=== PATIENT | male | born 1970 | race Caucasian/White ===

== ENCOUNTER → 2019-05-14 | Outpatient (CLI) | payer OTHER, SELFPAY | PROVIDERS: Family Provider Internal Medicine; Visit Provider Internal Medicine | DX: M54.5 Low back pain (principal) | CPT/HCPCS: 72100 ==

== ENCOUNTER 2019-07-25 05:00 | Emergency (ER) | payer OTHER, SELFPAY ==
[2019-07-25 05:08] VITALS: BP 158/95; PULSE 120; RESP 20; TEMP 37.9; O2SAT 94; BMI 42.3
[2019-07-25 05:17] VITALS: BP 158/95; PULSE 117; RESP 16; O2SAT 94
--- NOTE | 2019-07-25 05:18 | XRR_ITS ---
PROCEDURE INFORMATION: Exam: XR Chest, 1 View Exam date and time: 07/25/2019 5:51 AM Age: 49 years old Clinical indication: Cough and fever and shortness of breath; Additional info: Cough, congestion, fever, SOB x 4 days TECHNIQUE: Imaging protocol: XR of the chest Views: Frontal portable upright view of the chest. COMPARISON: CR Chest 1 [place] [id number] 03/08/2019 5:28 AM FINDINGS: Tubes, catheters and devices: EKG leads are present overlying the chest. Lungs: The lungs are clear bilaterally. The pulmonary vasculature is normal. Pleural space: No pleural effusion. No pneumothorax. Heart/Mediastinum: The heart is normal in size and contour. Mediastinum: Stable. Bones/joints: Stable. XR/XR chest 1V portable [id number] IMPRESSION: No acute cardiopulmonary abnormality identified.
[2019-07-25 05:37] LABS: Basophils % 0.2 %; Eosinophils % 0.4 %; Hemoglobin 14.4 g/dL (11.7-16.6); Lymphocytes # 0.5 10^3/uL (0.8-4.8); Lymphocytes % 9.6 %; Mean Corpuscular HGB Conc 32.7 g/dL (30.0-36.0); Mean Corpuscular Hemoglobin 28.1 pg (28.0-34.0); Mean Corpuscular Volume 85.9 fL (80-94); Mean Platelet Volume 9.8 fL (7.4-10.4); Monocytes # 0.4 10^3/uL (0.2-0.9); Monocytes % 6.8 %; Neutrophils # 4.4 10^3/uL (1.8-7.7); Neutrophils % 82.8 %; Nucleated Red Blood Cells % 0 %; Platelet Count 139 10^3/cmm (130-400); Red Blood Count 5.12 10^6/uL (4.1-5.3); Red Cell Distribution Width 14.5 % (12.1-15.1); White Blood Count 5.3 10^3/uL (4.0-10.0)
[2019-07-25] MEDS: acetaminophen 500 mg Tablet 1000 MG PO (05:39)
[2019-07-25] MEDS: sodium chloride 0.9% 1,000 ML 999 ML IV (05:39)
[2019-07-25] MEDS: ketorolac 30 mg/mL INJ 15 MG IVP (05:40)
--- NOTE | 2019-07-25 05:44 | W.ED.SOB ---
HPI - SOB/Dyspnea General: Chief Complaint: Shortness of Breath/Dyspnea Stated Complaint: back pain Time Seen by Provider: 07/25/19 05:09 Source: patient Mode of arrival: ambulatory History of Present Illness: HPI Narrative: Chance is a 49-year-old male who is had cough along with fever and body aches over the last 2 days. Patient states his had similar symptoms last week. Patient is currently febrile on tachycardic at this time. He denies any shortness of breath. He states he has body aches all over that are sharp in nature and rates it a 6 out of 10. He denies any worsening or improving factors. He has had no vomiting or abdominal pain MD elicited complaint: shortness of breath and cough Associated symptoms: Reports fever(s); Deny abdominal pain, chest pain, nausea or vomiting Review of Systems Const: Reports: fever and chills; Denies: body aches or change in appetite Eyes: Denies: blurry vision or eye discomfort ENMT: Denies: throat pain or dental pain Card: Denies: chest pain Resp: Reports: productive cough; Denies: shortness of breath GI: Denies: abdominal pain, nausea, vomiting or diarrhea : Denies: painful urination Musc: Reports: joint pain; Denies: neck pain or back pain Skin/Breast: Denies: rash Neuro: Denies: headache Psych: Denies: depression Amado/Lymph: Denies: easy bruising All/Imm: Denies: hives PFSH ED PFSH: Social History Smoking and tobacco status: former smoker Physical Exam Const: COMMON NORMALS: no apparent distress, oriented x3 and healthy appearing HENMT: COMMON NORMALS: normocephalic and head/scalp atraumatic HEAD & SCALP: normocephalic and atraumatic Eye: COMMON NORMALS: PERRL and EOMs intact bilaterally PUPIL: Yes PERRL Neck/C-Spine: COMMON NORMALS: full ROM and supple Chest: COMMONS NORMALS: inspection of chest normal and palpation of chest normal Resp: COMMON NORMALS: normal respiratory effort, no retractions, no use of accessory muscles and clear to auscultation bilaterally AUSCULTATION: clear to auscultation bilaterally Cardio: COMMON NORMALS: regular rhythm and no murmurs RATE: tachycardic RHYTHM: regular rhythm GI: COMMON NORMALS: normal to inspection, nondistended, normoactive bowel sounds, soft to palpation, non-tender and no masses PALPATION: Yes soft Extremity: COMMON NORMALS: normal to inspection and full ROM Neuro: COMMON NORMALS: oriented x3, moves all extremities and no focal motor deficits Psych: COMMON NORMALS: mental status grossly normal, thought process normal and cooperative THOUGHT PROCESS: normal thought process Skin: COMMON NORMALS: no rashes or lesions noted and no wounds GENERAL SKIN EXAM: no rashes or lesions noted Course Vital Signs: Vital signs: Vital Signs Temperature 98.4 F 07/25/19 06:44 Pulse Rate 115 H 07/25/19 06:44 Respiratory Rate 18 07/25/19 06:44 Blood Pressure 153/85 07/25/19 06:44 Pulse Oximetry 94 07/25/19 06:44 MDM - SOB/Dyspnea MDM Narrative: Medical decision making narrative: Patient presents here with fever body aches and has influenza. Patient's flu a was positive. He has no signs of pneumonia or sepsis. Patient feels improved here. We will place him on Tamiflu and he is to follow-up with primary care doctor in 3 to 5 days and return if worsening. Lab Data: Labs: Lab Results 07/25/19 07/25/19 07/25/19 Range/Units 05:24 05:30 05:30 WBC 5.3 (4.0-10.0) 10^3/ uL RBC 5.12 (4.1-5.3) 10^6/u L Hgb 14.4 (11.7-16.6) g/dL Hct 44.0 (42.0-52.0) % MCV 85.9 (80-94) fL MCH 28.1 (28.0-34.0) pg MCHC 32.7 (30.0-36.0) g/dL RDW 14.5 (12.1-15.1) % Plt Count 139 (130-400) 10^3/c mm MPV 9.8 (7.4-10.4) fL Neut % (Auto) 82.8 % Lymph % (Auto) 9.6 % [place] % (Auto) 6.8 % Eos % (Auto) 0.4 % Baso % (Auto) 0.2 % Neut # (Auto) 4.4 (1.8-7.7) 10^3/u L Lymph # (Auto) 0.5 L (0.8-4.8) 10^3/u L [place] # (Auto) 0.4 (0.2-0.9) 10^3/u L Eos # (Auto) 0.0 (0.0-0.8) 10^3/u L Baso # (Auto) 0.0 (0.0-0.1) 10^3/u L Nucleated RBC % (a uto) 0 % Nucleated RBCs # 0.0 /100WBC Sodium 136 (136-145) mmol/L Potassium 3.8 (3.5-5.1) mmol/L Chloride 102 (98-107) mmol/L Carbon Dioxide 21 L (22-29) mmol/L Anion Gap 16.8 (5-19) BUN 17 (6-20) mg/dL Creatinine 0.8 (0.7-1.2) mg/dL GFR Calculation 103.6 (90-130) mL/min Glucose 239 H (65-115) mg/dL Calculated Osmolal ity 286 (285-295) mOsm/k g Calcium 9.4 (8.5-10.5) mg/dL Total Bilirubin 0.3 (0.15-1.2) mg/dL AST 18 (0-40) U/L ALT 21 (0-41) U/L Alkaline Phosphata se 47 (40-130) IU/L Total Protein 6.3 L (6.6-8.7) g/dL Albumin 3.9 (3.5-5.2) g/dL Globulin 2.4 (1.3-4.6) g/dL Influenza Type A A g Positive H (Negative) POC Influenza B Ag Negative (Negative) Imaging Data^: CXR: Attestation: I personally reviewed and interpreted this imaging study as follows: My impression: no acute abnormality Discharge Plan Discharge Patient Disposition: Home, Self-Care Clinical Impression: Influenza A Condition: Stable Prescriptions: New Tamiflu 75 mg capsule 75 mg PO BID 5 Days Qty: 10 RF: 0 No Action isosorbide mononitrate 30 mg tablet extended release 24 hr 30 mg PO QAM Qty: 30 RF: 0 isosorbide mononitrate 30 mg tablet extended release 24 hr 30 mg PO DAILY Qty: 30 RF: 1 Discharge Orders: Discharge Order (Routine); Ordered 07/25/19 Ordered By: Ana Maria Resendiz Referrals: Lanie Washington MD [Primary Care Provider] - Discharge Diet: Advance as tolerated Discharge Activity: Resume usual activity Patient Instructions: Influenza (ED) Stand Alone Forms: Work/School Release Discharge Date/Time: 07/25/19 06:48 Coding Level of Care Code ED Sandblast Carver for Chg Fwd Exam Comprehensive
[2019-07-25 05:49] LABS: Alanine Aminotransferase 21 U/L (0-41); Albumin Level 3.9 g/dL (3.5-5.2); Alkaline Phosphatase 47 IU/L (40-130); Anion Gap 16.8 (5-19); Aspartate Amino Transferase 18 U/L (0-40); Blood Urea Nitrogen 17 mg/dL (6-20); Calcium 9.4 mg/dL (8.5-10.5); Carbon Dioxide 21 mmol/L (22-29); Chloride 102 mmol/L (98-107); Globulin 2.4 g/dL (1.3-4.6); Glomerular Filtration Rate 103.6 mL/min (90-130); Glucose 239 mg/dL (65-115); Osmolality Calculated 286 mOsm/kg (285-295); Potassium 3.8 mmol/L (3.5-5.1); Sodium 136 mmol/L (136-145); Total Bilirubin 0.3 mg/dL (0.15-1.2); Total Protein 6.3 g/dL (6.6-8.7)
[2019-07-25 05:56] LABS: Influenza A by IFA Positive (Negative); Influenza B by IFA Negative (Negative)
[2019-07-25 06:05] VITALS: BP 155/91; PULSE 106; RESP 18; O2SAT 94
[2019-07-25 06:44] VITALS: BP 153/85; PULSE 115; RESP 18; TEMP 36.9; O2SAT 94
== END 2019-07-25 06:48 | disposition home or self-care (01) ==
PROVIDERS: Emergency Provider Emergency Medicine; Family Provider Internal Medicine; PCP Internal Medicine
DX: J09.X2 Influenza due to identified novel influenza A virus with other respiratory manifestations (principal); Z87.891 Personal history of nicotine dependence
CPT/HCPCS: 12345; 71045; 80053; 85025; 87804; 96361; 96374; 96375; 99283; 99284; J1885; J7030

== ENCOUNTER 2020-07-10 19:48 | Observation (INO) | payer OTHER, SELFPAY ==
--- NOTE | 2020-07-10 19:51 | ECG_ITS ---
[facility] Test Date: 2020-07-10 Pat Name: Chance Garnica Department: Room: Gender: Male Admissions Manager: KAIN : 1970 Requested By: Ana Maria Resendiz Order Number: [id number] Meeta MD: Kelly Elias M.D. Measurements Intervals [place] Rate: 92 P: 16 [place]: 165 QRS: -27 QRSD: 101 T: 40 QT: 368 QTc: 456 Interpretive Statements SINUS RHYTHM BORDERLINE LEFT AXIS DEVIATION [QRS AXIS < -20] MINIMAL VOLTAGE CRITERIA FOR LVH, CONSIDER NORMAL VARIANT [MEETS CRITERIA IN ONE OF: R(aVL), S(V1), R(V5), R(V5/V6)+S(V1)] Compared to ECG 11/02/2018 02:26:19 Intraventricular conduction delay no longer present Electronically Signed On 07-12-2020 11:22:53 STOREKEEPER HELPER by Kelly Elias M.D. [email or web address] hospital.[email or web address]/store/OV/[id number]
--- NOTE | 2020-07-10 19:51 | XR_ITS ---
WS: [id number] Exam: XR chest 1V portable [id number] Date/Time of Exam: 07/10/2020 8:30 PM Reason For Exam: cp Comparison 07/25/2019. Findings: The lungs are clear and fully expanded. Costophrenic angles are sharp. No infiltrates. Bronchovascula r relief appears normal. Cardiac silhouette is unremarkable. Bony elements are intact. XR/XR chest 1V portable [id number] IMPRESSION: Unremarkable chest radiograph.
[2020-07-10 20:01] VITALS: BP 148/91; PULSE 90; RESP 14; TEMP 36.8; O2SAT 97; BMI 38.5
[2020-07-10 20:15] VITALS: BP 145/88; PULSE 87; O2SAT 97
--- NOTE | 2020-07-10 20:24 | ED_ITS ---
HPI - Chest Pain General: Chief Complaint: Chest Pain Stated Complaint: cp Time Seen by Provider: 07/10/20 20:15 Source: patient Mode of arrival: ambulatory Limitations: no limitations History of Present Illness: HPI narrative: 50-year-old male states of intermittent chest pain over the last few hours to his left chest. States it radiates down his left arm and to his left jaw. States pain is currently a 4 out of 10. Denies any worsening improving factors. Denies any shortness of breath. MD complaint: chest pain Associated symptoms: Deny abdominal pain, dyspnea, fever(s), nausea or vomiting Review of Systems Const: Denies: fever(s), chills, body aches or change in appetite Eyes: Denies: blurry vision or eye discomfort ENMT: Denies: throat pain or dental pain Card: Reports: chest pain Resp: Denies: dyspnea GI: Denies: abdominal pain, nausea, vomiting or diarrhea : Denies: dysuria Musc: Denies: neck pain or back pain Skin/Breast: Denies: rash Neuro: Denies: headache(s) Psych: Denies: depression Amado/Lymph: Denies: easy bruising All/Imm: Denies: urticaria PFSH ED PFSH: Medical History Dyslipidemia Hypertension Hypokalemia Testicular cancer Type 2 diabetes mellitus Surgical History H/O knee surgery H/O shoulder surgery History of appendectomy History of orchiectomy Hx of tonsillectomy Family History Father Cancer Testicular cancer Other Diabetes Social History Smoking and tobacco status: former smoker Alcohol intake: never Substance/Drug Use: never Household members: spouse Housing: House Physical Exam Const: COMMON NORMALS: no acute distress, patient oriented x3 and healthy appearing HENMT: COMMON NORMALS: normocephalic and atraumatic HEAD & SCALP: normoceph alic and atraumatic Eye: COMMON NORMALS: Equal, round and reactive pupils present and EOMs intact bilaterally PUPIL: Yes Equal, round and reactive pupils present Neck/C-Spine: COMMON NORMALS: full ROM and supple Chest: COMMONS NORMALS: normal inspection of the chest and normal palpation of entire chest wall Resp: COMMON NORMALS: normal respiratory effort, No retractions, No use of accessory muscles and clear to auscultation bilaterally AUSCULTATION: clear to auscultation bilaterally Cardio: COMMON NORMALS: regular rate, regular rhythm and No murmurs present (Cardio) RATE: regular rate RHYTHM: regular rhythm GI: COMMON NORMALS: Normal to inspection, nondistended, normoactive bowel sounds present, Soft to palpation, non-tender and no masses PALPATION: Yes Soft to palpation Extremity: COMMON NORMALS: normal to inspection and full ROM Neuro: COMMON NORMALS: patient oriented x3, moves all extremities and no focal motor deficits Psych: COMMON NORMALS: mental status grossly normal, Normal thought process present and cooperative THOUGHT PROCESS: Normal thought process present Skin: COMMON NORMALS: no rashes or lesions noted and no wounds GENERAL SKIN EXAM: no rashes or lesions noted Course Vital Signs: Vital signs: Vital Signs Temperature 98.3 F 07/10/20 20:01 Pulse Rate 90 07/10/20 20:01 Respiratory Rate 14 07/10/20 20:01 Blood Pressure 148/91 07/10/20 20:01 Pulse Oximetry 97 07/10/20 20:01 MDM - Chest Pain MDM Narrative: Medical decision making narrative: Patient presents with chest pain and has a initial troponin is negative normal EKG. He is continue to have some intermittent pain here and I spoke to the hospitalist and will admit for observation. He has no signs of pulmonary embolism. Lab Data: Labs: Lab Results 07/10/20 07/10/20 07/10/20 Range/Units 20:39 20:39 20:39 WBC 6.6 (4.0-10.0) 10^3/ uL RBC 5.13 (4.1-5.3) 10^6/u L Hgb 15.2 (11.7-16.6) g/dL Hct 45.2 (42.0-52.0) % MCV 88.1 (80-94) fL MCH 29.6 (28.0-34.0) pg MCHC 33.6 (30.0-36.0) g/dL RDW 12.7 (12.1-15.1) % Plt Count 233 (130-400) 10^3/c mm MPV 9.5 (7.4-10.4) fL Neut % (Auto) 43.8 % Lymph % (Auto) 46.5 % [place] % (Auto) 7.1 % Eos % (Auto) 1.8 % Baso % (Auto) 0.6 % Neut # (Auto) 2.91 (1.8-7.7) 10^3/u L Lymph # (Auto) 3.1 (0.8-4.8) 10^3/u L [place] # (Auto) 0.5 (0.2-0.9) 10^3/u L Eos # (Auto) 0.1 (0.0-0.8) 10^3/u L Baso # (Auto) 0.0 (0.0-0.1) 10^3/u L Nucleated RBC % (a uto) 0 % Nucleated RBCs # 0.0 /100WBC PT 13.00 (12.1-14.9) SECO NDS INR 0.95 (0.8-1.2) Sodium 135 L (136-145) mmol/L Potassium 3.4 L (3.5-5.1) mmol/L Chloride 97 L (98-107) mmol/L Carbon Dioxide 22 (22-29) mmol/L Anion Gap 19.4 H (5-19) BUN 13 (6-20) mg/dL Creatinine 0.6 L (0.7-1.2) mg/dL GFR Calculation 143.8 H (90-130) mL/min Glucose 254 H (65-115) mg/dL Calculated Osmolal ity 289 (285-295) mOsm/k g Calcium 9.3 (8.5-10.5) mg/dL Total Bilirubin 0.3 (0.15-1.2) mg/dL AST 14 (0-40) U/L ALT 24 (0-41) U/L Alkaline Phosphata se 55 (40-130) IU/L Troponin T Baselin e (0-15) ng/L Total Protein 6.4 L (6.6-8.7) g/dL Albumin 4.6 (3.5-5.2) g/dL Globulin 1.8 (1.3-4.6) g/dL 07/10/20 Range/Units 20:39 WBC (4.0-10.0) 10^3/ uL RBC (4.1-5.3) 10^6/u L Hgb (11.7-16.6) g/dL Hct (42.0-52.0) % MCV (80-94) fL MCH (28.0-34.0) pg MCHC (30.0-36.0) g/dL RDW (12.1-15.1) % Plt Count (130-400) 10^3/c mm MPV (7.4-10.4) fL Neut % (Auto) % Lymph % (Auto) % [place] % (Auto) % Eos % (Auto) % Baso % (Auto) % Neut # (Auto) (1.8-7.7) 10^3/u L Lymph # (Auto) (0.8-4.8) 10^3/u L [place] # (Auto) (0.2-0.9) 10^3/u L Eos # (Auto) (0.0-0.8) 10^3/u L Baso # (Auto) (0.0-0.1) 10^3/u L Nucleated RBC % (a uto) % Nucleated RBCs # /100WBC PT (12.1-14.9) SECO NDS INR (0.8-1.2) Sodium (136-145) mmol/L Potassium (3.5-5.1) mmol/L Chloride (98-107) mmol/L Carbon Dioxide (22-29) mmol/L Anion Gap (5-19) BUN (6-20) mg/dL Creatinine (0.7-1.2) mg/dL GFR Calculation (90-130) mL/min Glucose (65-115) mg/dL Calculated Osmolal ity (285-295) mOsm/k g Calcium (8.5-10.5) mg/dL Total Bilirubin (0.15-1.2) mg/dL AST (0-40) U/L ALT (0-41) U/L Alkaline Phosphata se (40-130) IU/L Troponin T Baselin e 7 (0-15) ng/L Total Protein (6.6-8.7) g/dL Albumin (3.5-5.2) g/dL Globulin (1.3-4.6) g/dL Imaging Data^: CXR: Attestation: I personally reviewed and interpreted this imaging study as follows: My impression: no acute abnormality EKG Data^: EKG 1: Attestation: I personally reviewed and interpreted this EKG as follows: EKG interpretation date: 07/10/20 EKG interpretation time: 19:57 Interpretation: nsr hr [address] or t wave abnormalities qrs 101 qtc 418 Discharge Plan Discharge Patient Disposition: Admitted As Inpatient Admit Provider: Johnnie Brooks Clinical Impression: Chest pain Qualifiers: Chest pain type: unspecified Qualified Code(s): R07.9 - Chest pain, unspecified Condition: Stable Coding Level of Care Code ED Functional Consultant for g Fwd Exam Comprehensive
[2020-07-10 20:46] LABS: Basophils % 0.6 %; Eosinophils # 0.1 10^3/uL (0.0-0.8); Eosinophils % 1.8 %; Hematocrit 45.2 % (42.0-52.0); Hemoglobin 15.2 g/dL (11.7-16.6); Lymphocytes # 3.1 10^3/uL (0.8-4.8); Lymphocytes % 46.5 %; Mean Corpuscular HGB Conc 33.6 g/dL (30.0-36.0); Mean Corpuscular Hemoglobin 29.6 pg (28.0-34.0); Mean Corpuscular Volume 88.1 fL (80-94); Mean Platelet Volume 9.5 fL (7.4-10.4); Monocytes # 0.5 10^3/uL (0.2-0.9); Monocytes % 7.1 %; Neutrophils # 2.91 10^3/uL (1.8-7.7); Neutrophils % 43.8 %; Nucleated Red Blood Cells % 0 %; Platelet Count 233 10^3/cmm (130-400); Red Blood Count 5.13 10^6/uL (4.1-5.3); Red Cell Distribution Width 12.7 % (12.1-15.1); White Blood Count 6.6 10^3/uL (4.0-10.0)
[2020-07-10 21:00] VITALS: PULSE 78; O2SAT 97
[2020-07-10 21:03] LABS: INR 0.95 (0.8-1.2)
[2020-07-10 21:10] LABS: Troponin(5th) Baseline 7 ng/L (0-15)
[2020-07-10 21:11] LABS: Alanine Aminotransferase 24 U/L (0-41); Albumin Level 4.6 g/dL (3.5-5.2); Alkaline Phosphatase 55 IU/L (40-130); Blood Urea Nitrogen 13 mg/dL (6-20); Calcium 9.3 mg/dL (8.5-10.5); Carbon Dioxide 22 mmol/L (22-29); Chloride 97 mmol/L (98-107); Globulin 1.8 g/dL (1.3-4.6); Glomerular Filtration Rate 143.8 mL/min (90-130); Glucose 254 mg/dL (65-115); Total Bilirubin 0.3 mg/dL (0.15-1.2); Total Protein 6.4 g/dL (6.6-8.7)
[2020-07-10 21:26] LABS: Anion Gap 19.4 (5-19); Aspartate Amino Transferase 14 U/L (0-40); Osmolality Calculated 289 mOsm/kg (285-295); Potassium 3.4 mmol/L (3.5-5.1); Sodium 135 mmol/L (136-145)
--- NOTE | 2020-07-10 21:51 | ECG_ITS ---
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 Measurements Intervals [place] Rate: 77 P: 36 SD: 178 QRS: 48 QRSD: 104 T: -3 QT: 390 QTc: 444 Interpretive Statements SINUS RHYTHM Compared to ECG 07/10/2020 19:57:09 No significant changes Electronically Signed On 07-12-2020 11:35:22 MANAGER BENEFIT by Kelly Elias M.D. [id number]
--- NOTE | 2020-07-10 21:56 | PC.NURSE ---
EKG done at 2152 and shown to ER doctor
[2020-07-10 22:00] VITALS: PULSE 78; RESP 14; O2SAT 95
--- NOTE | 2020-07-10 22:33 | PM.HP ---
Providers/Chief Complaint Admitting Physician: oJhnnie Brooks MD Primary Care Provider: Lanie Washington MD Chief Complaint: cp History of Present Illness Chance Garnica is a 50 year old male with history of nonobstructive coronary disease status post cardiac catheterization 2018, his antianginal medications were titrated up, with the 20% narrowing, type 2 diabetes, obesity, hypertension presented today with chief complaint of chest pain. Patient is stating that he was working on his truck when he started experiencing chest discomfort today which she is describing as pressure-like sensation which was radiating towards his left shoulder and jaw it lasted for about 2 to 5 min did not cause any diaphoresis, or vomiting but he felt nauseous and short of breath. 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 Chews tobacco every day. He has been experiencing chest pain intermittently today without any aggravating or relieving factors. No recent sinus infection, COVID-19 symptoms, diarrhea, headache, orthopnea or PND. Diagnostics in the ER revealed normal CBC, BMP other than hypokalemia, EKG does not reveal any ischemic or infarctive changes, chest x-ray unremarkable D-dimer unremarkable, troponin not significantly high, patient was complaining of slight chest discomfort radiating towards left shoulder at the time of my evaluation otherwise normal hemodynamics, in the ER he was given loading dose of aspirin along nitroglycerin and 1 mg of morphine. Review of Systems Const: Denies: fever(s) Eyes: Denies: change in vision ENMT: Denies: throat pain Card: Reports: chest pain; Denies: pre-syncope, dyspnea on exertion or orthopnea Resp: Reports: dyspnea GI: Denies: abdominal pain : Denies: flank pain Musc: Denies: neck pain Skin/Breast: Denies: rash Neuro: Denies: headache(s) Psych: Denies: anxiety Endo: Denies: polyuria Amado/Lymph: Denies: easy bruising All/Imm: Denies: urticaria Medications/Allergies Home Medications Medication Instructions Recorded Confirmed Last Taken Type atorvastatin 40 mg PO DAILY@189907/10/20 07/10/20 07/09/20 History escitalopram oxalate [Lexapro] 20 mg PO DAILY@189907/10/20 07/10/20 07/09/20 History isosorbide mononitrate 30 mg PO DAILY@1899 07/10/20 07/10/20 07/09/20 History lisinopril-hydrochlorothiazide 1 tab PO DAILY@0500 07/10/20 07/10/20 07/10/20 History metformin 1,000 mg PO BID@0500,1900 07/10/20 07/10/20 07/10/20 History trazodone 100 mg PO DAILY@2100 07/10/20 07/10/20 07/09/20 History Allergies Allergy/AdvReac Type Severity Reaction Status Date / Time No Known Allergies Allergy Unverified 06/11/19 16:37 PFSH Acute PFSH: Medical History Dyslipidemia Hypertension Hypokalemia Testicular cancer Type 2 diabetes mellitus Surgical History H/O knee surgery H/O shoulder surgery History of appendectomy History of orchiectomy Hx of tonsillectomy Family History Father Cancer Testicular cancer Other Diabetes Social History Smoking and tobacco status: former smoker Alcohol intake: never Substance/Drug Use: never Household members: spouse Housing: House Vitals/I&O/Wt Last Vital Signs Temp 98.3 F 07/10/20 20:01 Pulse 90 07/10/20 20:01 Resp 14 07/10/20 20:01 BP 148/91 07/10/20 20:01 Pulse Ox 97 07/10/20 20:01 Weight last 48 hrs Weight 136.078 kg Physical Exam Narrative: EXAM NARRATIVE: Middle-age male Obese, lying comfortably in his bed Questioning tobacco when entered the room S1, S2 no murmur or signs of heart failure Central obesity, nontender abdomen Bilateral breath sounds without adventitial rhonchi or crackles No neurological deficit EOMI, PERRLA GCS 15 Low symmetry no edema gangrene or ulcer Appropriate mood and affect Data : 07/10/20 20:39 07/10/20 20:39 A&P Assessment and plan (1) Angina at rest: Unstable angina Multiple risk factors for coronary disease such as hypertension, diabetes, chews tobacco, age, sex, Previous cardiac catheterization 2 years ago revealed 20% stenosis of LAD, troponins unremarkable, EKG without ischemic or infarctive changes, D-dimer unremarkable We will get echo and Lexiscan stress test in the morning, Would avoid adding beta-jake because of Lexiscan stress test, optimize antianginal medications after stress test N.p.o. Status: Acute Additional A&P Information Type 2 diabetes: We will check hemoglobin A1c level, we will keep him on sliding scale because he is n.p.o., start consistent carb diet after the stress test He only takes Metformin at home Chews tobacco: Not willing to quit at this point N.p.o. DVT prophylaxis Lovenox Full code Attestations Medical Necessity Statement*: Anticipating discharge in less than 48 h needs Lexiscan stress test rule coronary etiology for chest pain Time Spent in Patient Care: (>than 50% of time spent in counselling and/or direct pt care on unit). 50mins Coding Level of Care Code Acute Scientific Informatics Analyst for Kalia Sepulveda Diagnoses Angina at rest I20.8
[2020-07-10] MEDS: aspirin 81 mg Chew Tablet 324 MG PO (22:45)
[2020-07-10] MEDS: nitroglycerin 0.4 mg sublingual Tablet SUBLINGUAL (22:46)
[2020-07-10 22:57] LABS: Troponin 5 2HR 7.17 ng/L (0-15); Troponin 5 2HR Delta 0.17 ABS# (0-10)
[2020-07-10 23:00] VITALS: PULSE 79; RESP 16; O2SAT 97
[2020-07-10 23:01] LABS: D Dimer 0.17 ug/mIFEU (0-0.59)
[2020-07-10 23:23] VITALS: RESP 12; O2SAT 97
[2020-07-10] MEDS: morphine 4 mg/mL SDV 1 mL 1 MG IVP (23:23)
[2020-07-10 23:46] LABS: Magnesium 1.6 mg/dL (1.7-2.3)
[2020-07-11] VITALS (11 sets, daily range): BP systolic 99–137; BP diastolic 66–89; PULSE 68–97; RESP 13–18; TEMP 36.6–36.8; O2SAT 96–98
--- NOTE | 2020-07-11 00:36 | ECG_ITS ---
[facility] Test Date: 2020-07-11 Pat Name: Chance Garnica Department: Room: 112 Gender: Male Social Science Professor: : 1970 Requested By: Johnnie Brooks Order Number: [id number] Meeta MD: Kelly Elias M.D. Interpretive Statements NAME OF STUDY: LEXISCAN SESTAMIBI STRESS TEST INDICATION: Angina PROCEDURE: At the baseline, the blood pressure was 118/80 mm Hg with a heart rate of 71 bpm and oxygen saturation 96%. The electrocardiogram showed normal sinus rhythm, normal axis and poor anterior R wave progression. ??? The Lexiscan was infused over a period of 20 seconds. A total of 0.4 milligrams of Lexiscan was infused. The stress phase was continued for a total of 5 minutes. Heart rate at the end of the stress phase was 87 bpm, oxygen saturation of 94% with a blood pressure of 123/72 mm Hg. The EKG at the peak infusion revealed no significant ST-T wave chnages. ??? Sestamibi was injected 20 seconds after the Lexiscan infusion. ??? Blood pressure at the end of the recovery phase was 119/72 mm Hg with a heart rate of 78 beats per minutes and oxygen saturation of 97%. ??? CONCLUSION: 1. No significant EKG changes with the] LexiScan infusion. 2. No LexiScan induced chest pain or cardiac arrhythmia. 3. Normal blood pressure and heart rate response. 4. Sestamibi/sestamibi perfusion scan pending; see separate report. Electronically Signed On 07-12-2020 11:04:03 CAB DRIVER by Kelly Elias M.D. [id number]
--- NOTE | 2020-07-11 00:36 | NMCV_ITS ---
NM mariah perf SPECT r/s* [id number] Chance Age: 50 Gender: M : 1970 Exam Date: 07/11/2020 07:10 Ordering Phys: Johnnie Brooks MD Technologist: ROHAN Richard Exam Location: [facility] Indications: CHEST PAIN STRESS TEST Please see separate stress test report in [facility] for full findings IMAGE PROTOCOL Rest/Stress 1 Lexiscan Day Radiopharmaceutical Dose (mCi) Administration Site Administered by Rest: Tc-99m 10.9 IV ROHAN Douglass Sestamibi Stress:Tc-99m 33.0 IV ROHAN Richard Sestamibi Rest: 11-Jul-2020 60 Discovery 630 Stress: 11-Jul-2020 30 Discovery 630 0.4mg Lexiscan. Supine position only as patient was unable to lay prone. SPECT RESULTS Technical Quality: Excellent Raw Data Analysis: Normal Image Corrections: No attenuation or motion correction applied Summed Stress Score: 3 Summed Rest Score: 11 Summed Difference Score: 0 PERFUSION FINDINGS Medium sized perfusion abnormality of moderate to severe severity of entire inferior and mid to apical inferolateral wall on rest images with improved trace uptake in stress images. FUNCTIONAL RESULTS (calculated via Gated SPECT) Stress Image LV EF (%): 46 Stress EDV (mL):170 TID: 1.08 Stress ESV (mL):92 FUNCTIONAL FINDINGS: The left ventricle is normal in size. Transient Ischemia Dilatation of 1.1. There is mildly reduced left ventricular global systolic function. The left ventricular ejection fraction is reduced with a value of 46%. There is possible mild hypokinesis of inferior wall. Increased end diastolic and end systolic volumes. IMPRESSIONS 1. Medium sized paradoxical perfusion abnormality of moderate to severe severity of entire inferior and mid to apical inferolateral and apical eric. 2. This very likely represents attenuation artifact. 3. The left ventricular ejection fraction is mildly reduced with a value of 46%. 4. There is possible mild hypokinesis of basal inferior wall. 5. No coronary ischemia based on study. Kelly Elias MD (Electronically Signed) Final Date: 12 July 2020 10:57 S
--- NOTE | 2020-07-11 00:36 | USCV_ITS ---
, Chance Age: 50 Gender: M : 1970 Exam Date: 07/11/2020 06:22 Ordering Phys: Johnnie Brooks MD Technologist: Lana Gallardo [place] [facility] [place]: ANGINA BP: 117 / 66 HR: 63 Rhythm: Sinus Technical Quality: Difficult MEASUREMENTS (Male / Female) Normal Values 2D ECHO LV Diastolic Diameter PLAX 4.0 cm 4.2 - 5.9 / 3.9 - 5.3 cm LV Systolic Diameter PLAX 3.5 cm LV Chamber Size 3.7 cm IVS Diastolic Thickness 1.4 cm 0.6 - 1.0 / 0.6 - 0.9 cm IVS Systolic Thickness 1.7 cm LVPW Diastolic Thickness 1.5 cm 0.6 - 1.0 / 0.6 - 0.9 cm LVPW Systolic Thickness 1.9 cm RV Chamber Size 2.5 cm LVOT Diameter 2.0 cm LV Ejection Fraction 2D Teich 29.7 % LV Ejection Fraction MOD 2C 55.7 % LV Ejection Fraction 2C AL 58.3 % LA Diameter 4.1 cm LA Width 3.0 cm LA Height 4.6 cm RA Width 3.8 cm RA Height 4.1 cm Aorta at Sinotubular Diameter 3.6 cm M-MODE LV Diastolic Diameter MM 4.9 cm 4.2 - 5.9 / 3.9 - 5.3 cm LV Systolic Diameter MM 3.2 cm LV Ejection Fraction MM Teich 64.0 % IVS Diastolic Thickness MM 1.1 cm 0.6 - 1.0 / 0.6 - 0.9 cm IVS Systolic Thickness MM 1.5 cm LVPW Diastolic Thickness MM 1.3 cm 0.6 - 1.0 / 0.6 - 0.9 cm LVPW Systolic Thickness MM 2.0 cm RV Diastolic Diameter MM 1.6 cm Aortic Annulus Diameter 4.0 cm LA Ao Ratio MM 1.0 MV E Point Septal Separation 0.8 cm DOPPLER AV Peak Velocity 101.0 cm/s LVOT Peak Velocity 54.0 cm/s AV Area Cont Eq vti 2.3 cm squared AV Area Cont Eq pk 1.8 cm squared MV Area PHT 4.4 cm squared Mitral E to A Ratio 1.2 MV E' Velocity 46.0 cm/s Mitral E to MV E' Ratio 9.3 Mitral E to LV E' Lateral Ratio 9.0 Mitral E to LV E' Septal Ratio 9.6 TR Peak Velocity 134.3 cm/s TR Peak Gradient 7.2 mmHg TR Mean Velocity 101.5 cm/s TR Mean Gradient 4.6 mmHg TR Velocity Time Integral 36.8 cm TV Peak E Velocity 64.0 cm/s PV Peak Velocity 48.0 cm/s RV Acceleration Time 0.1 s RV Ejection Time 0.3 s RV AcT/ET 0.3 FINDINGS Left Ventricle Normal left ventricular size. LV systolic function can not be determined accurately because of poor visualization, grossly normal. Regional wall motion abnormalties can not be assessed because of poor ultrasonic windows . Diastolic function is normal Right Ventricle The right ventricle is normal in size and function. Right Atrium The right atrium is normal in size. Left Atrium The left atrium is normal in size. Mitral Valve Structurally normal mitral valve without significant stenosis or prolapse. There is no mitral regurgitation. Aortic Valve Grossly normal. No significant aortic stenosis is seen. There is no aortic regurgitation. Tricuspid Valve Not well visualized. No significant stenosis or regurgitation. Insufficient TR jet to calculate RVSP Pulmonic Valve Not well visualized Pericardium Normal pericardium without effusion. Aorta Normal ascending aorta dimension. CONCLUSIONS This is a limited quality echocardiogram because of poor visualization of cardiac structures and limited echo windows Grossly LV systolic function is normal. Regional wall motion abnormalities can not be assessed because of limited visualization Diatsolic function is normal No gross valvular abnormalities Compared to prior echocardiogram from 11/03/2018, no significant changes are noted. Recommend echo with contrast to assess LV systolic function and regional wall motion accurately. Kevan Coburn MD (Electronically Signed) Final Date: 11 July 2020 15:30 S
[2020-07-11] MEDS: potassium chloride ER 20 mEq Tablet 40 MEQ PO (00:53)
[2020-07-11] MEDS: enoxaparin 40 mg/0.4 mL Syringe SUBCUT (00:54)
[2020-07-11 01:03] LABS: Estmated Average Glucose 266; Hemoglobin A1C 10.9 % (4.0-6.0)
--- NOTE | 2020-07-11 01:05 | PC.NURSE ---
Patient arrived to the floor from the ED after report was received via phone. Patient is alert and oriented, ambulatory, and on room air. Patient in SR-ST, rate of 102. Patient complains of chest pain 2. VSS.
[2020-07-11 02:34] LABS: Anion Gap 14.6 (5-19); Blood Urea Nitrogen 14 mg/dL (6-20); Calcium 9.8 mg/dL (8.5-10.5); Carbon Dioxide 27 mmol/L (22-29); Chloride 98 mmol/L (98-107); Glomerular Filtration Rate 120.4 mL/min (90-130); Glucose 327 mg/dL (65-115); Osmolality Calculated 295 mOsm/kg (285-295); Potassium 3.6 mmol/L (3.5-5.1); Sodium 136 mmol/L (136-145)
[2020-07-11] MEDS: lisinopril 20 mg Tablet PO (03:55)
[2020-07-11 06:36] LABS: Glucose Point of Care 213 mg/dL (70-110)
--- NOTE | 2020-07-11 07:48 | PC.NURSE ---
off unit to stress test
[2020-07-11] MEDS: regadenoson 0.4 Mg/5 ml Syringe IVP (08:03)
[2020-07-11] MEDS: hydroCHLOROthiazide 25 mg Tablet PO (09:47)
[2020-07-11] MEDS: aspirin 81 mg EC Tablet PO (09:47)
--- NOTE | 2020-07-11 10:08 | PC.CHAP ---
Pastoral Care Encounter/Spiritual Assessment Type of Contact [] Declined outbound sales executive visit [] Patient/Family/Request visit [] Outpatient visit [] Follow-up visit [] Physician referral [] Code/Alert [x] Routine visit [] Staff referral [] Actively dying [] Patient sleeping [] Family support [] [] Out of room [] Palliative care [] [] Receiving care in room [] Pre-surgical visit [] Trauma [] Long length of stay [] ICU visit [] Other: Relational/Emotional Strength [] Patient feels connected with others/family/visitors/staff [] Distress [] Loneliness/isolation [] Abandonment Spirituality of Patient [] Person of [place] [] Attends Restorationism of their [place] [] Believes in Prayer [] Reads Bible or Moravian materials [] There are Spiritual issues to be addressed Cover Machine Operator Interventions [x] Prayer [] Active listening [] Non-anxious presence [] Spiritual/emotional support [] Crisis/trauma care [] Spiritual counseling [] Bereavement support [] Provided bereavement packet [] Provided Bible/devotional materials [] Provided toy/stuffed animal, coloring book to patient or family member [] Provided Communion [] Anointing/[place] [] Salvation [x] Completed spiritual assessment [] Other: Impact on Illness or Injury [] Angry [] Fearful [] Anxious [] Often cries [] Exhaustion [] Unable to work [] Unable to attend mandaen [] Unable to walk/stand [] Unable to read [] Unable to drive [] Unable to eat/drink [] Unable to sleep [] Unable to be with family [] Patient intubated [] Other: Summary patient not to social... no conversation Time spent with patient 5 min
[2020-07-11 11:17] LABS: Glucose Point of Care 306 mg/dL (70-110)
[2020-07-11 17:02] LABS: Glucose Point of Care 270 mg/dL (70-110)
[2020-07-11] MEDS: atorvastatin 40 mg Tablet PO (18:13)
[2020-07-11] MEDS: isosorbide mononitrate ER 30 mg Tablet PO (18:13)
--- NOTE | 2020-07-11 20:02 | PM.PN ---
Subjective Subjective: Interval history: Continue to have intermittent chest pain however improved. Medications: Reviewed: Yes Vitals/I&O/Wt Last Vital Signs Temp 98.3 F 07/11/20 19:45 Pulse 89 07/11/20 19:45 Resp 16 07/11/20 19:45 BP 137/82 07/11/20 19:45 Pulse Ox 98 07/11/20 19:45 07/11/20 07/11/20 07/11/20 06:59 14:59 22:59 Intake Total 200 / 200 480 / 480 Balance 200 / 200 480 / 480 Weight last 48 hrs Weight 136.078 kg Data : 07/10/20 20:39 07/11/20 01:45 A&P Assessment and plan (1) Angina at rest: Stress test today - results pending Continue current meds If chest pain continues will consult cardiology Follow up on echo Status: Acute Additional A&P Information Type 2 diabetes: - Sliding scale insulin - Diabetic diet Chews tobacco: Not willing to quit at this point - Using it in room N.p.o. DVT prophylaxis Lovenox Full code Attestations Medical Necessity Statement*: Will require additional day in hospital for eval of ongoing chest pain Time Spent in Patient Care: Greater than 35 minutes Coding Level of Care Code Acute Medical Equipment Repair Technician for Chg Fwd Diagnoses Angina at rest I20.8
[2020-07-11 20:36] LABS: Glucose Point of Care 258 mg/dL (70-110)
[2020-07-11] MEDS: trazodone 100 mg Tablet PO (21:03)
--- NOTE | 2020-07-11 21:53 | PC.NURSE ---
Patient has no complaints at this time. Will monitor.
[2020-07-12] VITALS (7 sets, daily range): BP systolic 96–130; BP diastolic 46–72; PULSE 57–86; RESP 12–16; TEMP 36.5–36.7; O2SAT 95–98
[2020-07-12] MEDS: enoxaparin 40 mg/0.4 mL Syringe SUBCUT (02:20)
[2020-07-12] MEDS: lisinopril 20 mg Tablet PO (04:57)
[2020-07-12 06:39] LABS: Glucose Point of Care 196 mg/dL (70-110)
[2020-07-12] MEDS: hydroCHLOROthiazide 25 mg Tablet PO (08:07)
[2020-07-12] MEDS: aspirin 81 mg EC Tablet PO (08:07)
--- NOTE | 2020-07-12 08:44 | PC.NURSE ---
Spoke with Dr Corral with patient reports of headache instructions to start tylenol PO 650mg Q6H PRN for mild pain
[2020-07-12] MEDS: acetaminophen 325 mg Tablet 650 MG PO (09:27)
[2020-07-12 11:02] LABS: Glucose Point of Care 318 mg/dL (70-110)
--- NOTE | 2020-07-12 11:24 | PM.DCS ---
Discharge Providers Date of Admission: 07/10/20 22:00 Date of Discharge: July 12, 2020 Attending Provider at Admission: Johnnie Brooks MD Attending Provider at Discharge: Marielle Geller Primary Care Provider: Lanie Washington MD Diagnoses at Discharge Discharge Diagnosis (1) Angina at rest: Status: Resolved Reason for Visit Reason for Visit: cp Hospital Course Hospital Course 50 year old male with history of nonobstructive coronary disease status post cardiac catheterization 2018, his antianginal medications were titrated up, with the 20% narrowing, type 2 diabetes, obesity, hypertension presented today with chief complaint of chest pain. Patient is stating that he was working on his truck when he started experiencing chest discomfort today which she is describing as pressure-like sensation which was radiating towards his left shoulder and jaw it lasted for about 2 to 5 min did not cause any diaphoresis, or vomiting but he felt nauseous and short of breath. 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 Chews tobacco every day. He has been experiencing chest pain intermittently today without any aggravating or relieving factors. No recent sinus infection, COVID-19 symptoms, diarrhea, headache, orthopnea or PND. Diagnostics in the ER revealed normal CBC, BMP other than hypokalemia, EKG does not reveal any ischemic or infarctive changes, chest x-ray unremarkable D-dimer unremarkable, troponin not significantly high, patient was complaining of slight chest discomfort radiating towards left shoulder at the time of my evaluation otherwise normal hemodynamics, in the ER he was given loading dose of aspirin along nitroglycerin and 1 mg of morphine. Upon admission to the hospital patient was monitored on cardiac telemetry. Did not have any notable arrhythmias. Was taken for a nuclear stress test which showed medium sized paradoxical perfusion abnormality of moderate to severe severity of entire inferior and mid to apical inferolateral and apical eric suggestive of likely attenuation artifact. No coronary ischemia was noted. Echocardiogram was performed however poor visualization. Grossly did not appear to be different from prior echocardiograms. Patients chest pain had resolved. At this point he was stable and comfortable for discharging home. Advised to return to hospital if any recurrence of chest pain. Follow-up with Cardiology was arranged. Physical Exam Narrative: EXAM NARRATIVE: Middle-age male Obese, lying comfortably in his bed Questioning tobacco when entered the room S1, S2 no murmur or signs of heart failure Central obesity, nontender abdomen Bilateral breath sounds without adventitial rhonchi or crackles No neurological deficit EOMI, PERRLA GCS 15 Low symmetry no edema gangrene or ulcer Appropriate mood and affect Discharge Data Data Completed and Pending: Completed Studies During Hospitalization Category Date Time Status Sestamibi Stress Test Request Amarjit ne Exams 07/11/20 00:36 Completed XR chest 1V kimberly ble [id number] Stat Exams 07/10/20 19:51 Completed NM mariah perf SPECT r/s* [id number] Routin e Nuc Med 07/11/20 00:36 Completed CV echo complete* [id number] Routine Ultrasound 07/11/20 00:36 Completed Labs from last 24 hours 07/12/20 07/12/20 07/11/20 11:00 06:28 20:26 POC Glucose 318 H 196 H 258 H 07/11/20 16:58 POC Glucose 270 H Vitals: Last Vital Signs Temp 98.0 F 07/12/20 11:11 Pulse 86 07/12/20 11:11 Resp 12 07/12/20 11:11 BP 130/72 07/12/20 11:11 Pulse Ox 96 07/12/20 11:11 Discharge Plan Discharge Patient Disposition: Home Condition: Stable Prescriptions: New aspirin 81 mg Tablet,Delayed Release (Dr/Ec) 81 mg PO DAILY Qty: 30 RF: 0 Continued atorvastatin 40 mg tablet 40 mg PO DAILY@1900 RF: 0 trazodone 100 mg tablet 100 mg PO DAILY@2100 RF: 0 metformin 1,000 mg tablet 1,000 mg PO BID@0500,1900 RF: 0 lisinopril-hydrochlorothiazide 20-25 mg tablet 1 tab PO DAILY@0500 RF: 0 Lexapro 20 mg tablet 20 mg PO DAILY@1900 RF: 0 isosorbide mononitrate 30 mg tablet extended release 24 hr 30 mg PO DAILY@1900 RF: 0 Discharge Orders: Discharge Order (Routine); Ordered 07/12/20 Ordered By: Marielle Geller Referrals: Lanie Washington MD [Primary Care Provider] - 4-7 days ([facility] will be calling to schedule a hospital followup to be seen in 4 to 7 days. If you don't hear from them by Tuesday, please give them a call. thank you) Kevan Coburn M.D [Physician] - 1 week ([facility] Will be calling to schedule a cardiology followup to be seen in approx. 1 week. If you don't hear from them by Tuesday afternoon, please give them a call. Thank you ) Discharge Diet: Advance as tolerated Discharge Activity: Increase activity as tolerated Patient Instructions: Aspirin (By mouth), Chest Pain Stoplight Activity Restrictions/Additional Instructions: Please return to ER if any recurrance of chest pain, follow up with cardiology outpatient Discharge Attestations Time Spent in Discharge Care*: greater than 30 min Specific Discharge Activities: educating patient, discussing with pcp/other providers (Discussed with cardiology director of occupational health ), discussing with director of casework services/social workers/dc planners, documenting/other paperwork and evaluating patient/reviewing data Status at Discharge: Cognitive status at discharge: cognitively intact, Behavioral status at discharge: cooperative, Functional status at discharge: independent ambulation Overall status at discharge: patient is back to baseline Quality Metrics Clinical Quality Measures During this hospital stay, did patient experience: None Coding Level of Care Code Acute Manager Retail for Kalia Sepulveda Diagnoses Angina at rest I20.8
--- NOTE | 2020-07-12 13:27 | PC.NURSE ---
patient discharge home, patient provided with discharge instructions and educated about new medications patient ambulated out with spouse patient alert oriented and in stable condition upon departure. all belongings and discharge instructions in hand
== END 2020-07-12 12:55 | disposition home or self-care (01) ==
LOC: ER 22:08 → CSU 22:14
PROVIDERS: Admitting Provider Internal Medicine; Emergency Provider Emergency Medicine; PCP Internal Medicine; Visit Provider Hospitalist
DX: I20.8 Other forms of angina pectoris (principal); E11.9 Type 2 diabetes mellitus without complications; Z79.4 Long term (current) use of insulin; F17.220 Nicotine dependence, chewing tobacco, uncomplicated; E78.5 Hyperlipidemia, unspecified
CPT/HCPCS: 36415; 36416; 71045; 78452; 80048; 80053; 82962; 83036; 83735; 84484; 85025; 85378; 85610; 93005; 93017; 93306; 96361; 96372; 96374; 99285; A9500; G0378; J1650; J1815; J2270; J2785

== ENCOUNTER 2020-09-22 23:57 | Emergency (ER) | payer OTHER, SELFPAY ==
[2020-09-22 23:59] VITALS: BP 112/72; PULSE 90; RESP 17; TEMP 36.7; O2SAT 98; BMI 35.9
--- NOTE | 2020-09-23 00:18 | XRR_ITS ---
PROCEDURE INFORMATION: Exam: XR Chest Exam date and time: 09/23/2020 12:37 AM Age: 50 years old Clinical indication: Patient HX: Chest pain x 1 day; Additional info: Cp TECHNIQUE: Imaging protocol: XR of the chest. Views: 1 view. COMPARISON: CR XR chest 1V portable [id number] 07/10/2020 8:15 PM FINDINGS: Lungs: Unremarkable. No consolidation. Pleural spaces: Unremarkable. No pleural effusion. No pneumothorax. Heart/Mediastinum: Unremarkable. No cardiomegaly. Bones/joints: Unremarkable. XR/XR chest 1V portable [id number] IMPRESSION: No acute findings.
--- NOTE | 2020-09-23 00:18 | ECG_ITS ---
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 Measurements Intervals [place] Rate: 92 P: 51 IN: 168 QRS: 0 QRSD: 88 T: -10 QT: 399 QTc: 494 Interpretive Statements SINUS RHYTHM POSSIBLE LEFT ATRIAL ENLARGEMENT [-0.1mV P WAVE IN V1/V2] MODERATE ST DEPRESSION [0.05+ mV ST DEPRESSION] INTERPRETATION BASED ON A DEFAULT AGE OF 40 YEARS Compared to ECG 07/10/2020 21:52:06 ST (T wave) deviation now present Electronically Signed On 09-23-2020 19:21:44 CDT by Kimberlee Meehan M.D. [id number] f
[2020-09-23 00:46] VITALS: BP 93/73; PULSE 83; RESP 17; O2SAT 94
[2020-09-23 00:49] LABS: Basophils % 0.6 %; Eosinophils # 0.1 10^3/uL (0.0-0.8); Eosinophils % 1.8 %; Hemoglobin 15.6 g/dL (11.7-16.6); Lymphocytes # 3.2 10^3/uL (0.8-4.8); Lymphocytes % 43.6 %; Mean Corpuscular HGB Conc 33.2 g/dL (30.0-36.0); Mean Corpuscular Hemoglobin 29.7 pg (28.0-34.0); Mean Corpuscular Volume 89.5 fL (80-94); Mean Platelet Volume 9.4 fL (7.4-10.4); Monocytes # 0.6 10^3/uL (0.2-0.9); Monocytes % 7.6 %; Neutrophils # 3.35 10^3/uL (1.8-7.7); Neutrophils % 46.3 %; Nucleated Red Blood Cells % 0 %; Platelet Count 233 10^3/cmm (130-400); Red Blood Count 5.25 10^6/uL (4.1-5.3); Red Cell Distribution Width 12.6 % (12.1-15.1); White Blood Count 7.2 10^3/uL (4.0-10.0)
--- NOTE | 2020-09-23 00:52 | W.ED.CHESTPA ---
HPI - Chest Pain General: Chief Complaint: Chest Pain Stated Complaint: CP Time Seen by Provider: 09/23/20 00:31 Source: patient Mode of arrival: ambulatory Limitations: no limitations History of Present Illness: HPI narrative: 50-year-old male states he started having chest pain little over an hour ago. He states it is a pressure type pain in his left chest that radiated down his left arm and up his jaw. He states he had some diaphoresis and nausea with it. He states is improved and is currently 2 out of 10. He denies any worsening improving factors. He states that he has a history of high cholesterol and high blood pressure. Denies any cough. Denies any shortness of breath currently. Associated symptoms: Deny abdominal pain, dyspnea, fever(s), nausea or vomiting Review of Systems Const: Denies: fever(s), chills, body aches or change in appetite Eyes: Denies: blurry vision or eye discomfort ENMT: Denies: throat pain or dental pain Card: Reports: chest pain Resp: Denies: dyspnea GI: Denies: abdominal pain, nausea, vomiting or diarrhea : Denies: dysuria Musc: Denies: neck pain or back pain Skin/Breast: Denies: rash Neuro: Denies: headache(s) Psych: Denies: depression Amado/Lymph: Denies: easy bruising All/Imm: Denies: urticaria PFSH ED PFSH: Medical History Dyslipidemia Hypertension Hypokalemia Testicular cancer Type 2 diabetes mellitus Surgical History H/O knee surgery H/O shoulder surgery History of appendectomy History of orchiectomy Hx of tonsillectomy Family History Father Cancer Testicular cancer Other Diabetes Social History Smoking and tobacco status: former smoker Alcohol intake: never Household members: spouse Housing: House Physical Exam Const: COMMON NORMALS: no acute distress, patient oriented x3 and healthy appearing HENMT: COMMON NORMALS: normocephalic and atraumatic HEAD & SCALP: normocephalic and atraumatic Eye: COMMON NORMALS: Equal, round and reactive pupils present and EOMs intact bilaterally PUPIL: Yes Equal, round and reactive pupils present Neck/C-Spine: COMMON NORMALS: full ROM and supple Chest: COMMONS NORMALS: normal inspection of the chest and normal palpation of entire chest wall Resp: COMMON NORMALS: normal respiratory effort, No retractions, No use of accessory muscles and clear to auscultation bilaterally AUSCULTATION: clear to auscultation bilaterally Cardio: COMMON NORMALS: regular rate, regular rhythm and No murmurs present (Cardio) RATE: regular rate RHYTHM: regular rhythm GI: COMMON NORMALS: Normal to inspection, nondistended, normoactive bowel sounds present, Soft to palpation, non-tender and no masses PALPATION: Yes Soft to palpation Extremity: COMMON NORMALS: normal to inspection and full ROM Neuro: COMMON NORMALS: patient oriented x3, moves all extremities and no focal motor deficits Psych: COMMON NORMALS: mental status grossly normal, Normal thought process present and cooperative THOUGHT PROCESS: Normal thought process present Skin: COMMON NORMALS: no rashes or lesions noted and no wounds GENERAL SKIN EXAM: no rashes or lesions noted Course Vital Signs: Vital signs: Vital Signs Temperature 98.1 F 09/22/20 23:59 Pulse Rate 81 09/23/20 02:52 Respiratory Rate 17 09/23/20 02:52 Blood Pressure 113/70 09/23/20 02:52 Pulse Oximetry 96 09/23/20 02:52 MDM - Chest Pain MDM Narrative: Medical decision making narrative: Patient presents here with chest pain. Is atypical in nature. His initial repeat troponins here are negative. He had a normal stress test done this June. He is currently pain-free. He has no signs of acute coronary syndrome. He has no signs of pulmonary embolism or aortic dissection. He is stable for discharge is to follow-up his PCP in 3 to 5 days and return if worsening. Lab Data: Labs: Lab Results 09/23/20 09/23/20 09/23/20 Range/Units 00:43 00:43 00:43 WBC 7.2 (4.0-10.0) 10^3/ uL RBC 5.25 (4.1-5.3) 10^6/u L Hgb 15.6 (11.7-16.6) g/dL Hct 47.0 (42.0-52.0) % MCV 89.5 (80-94) fL MCH 29.7 (28.0-34.0) pg MCHC 33.2 (30.0-36.0) g/dL RDW 12.6 (12.1-15.1) % Plt Count 233 (130-400) 10^3/c mm MPV 9.4 (7.4-10.4) fL Neut % (Auto) 46.3 % Lymph % (Auto) 43.6 % [place] % (Auto) 7.6 % Eos % (Auto) 1.8 % Baso % (Auto) 0.6 % Neut # (Auto) 3.35 (1.8-7.7) 10^3/u L Lymph # (Auto) 3.2 (0.8-4.8) 10^3/u L [place] # (Auto) 0.6 (0.2-0.9) 10^3/u L Eos # (Auto) 0.1 (0.0-0.8) 10^3/u L Baso # (Auto) 0.0 (0.0-0.1) 10^3/u L Nucleated RBC % (a uto) 0 % Nucleated RBCs # 0.0 /100WBC PT 12.80 (12.1-14.9) SECO NDS INR 0.93 (0.8-1.2) D-Dimer (0-0.59) ug/mIFE U Sodium 134 L (136-145) mmol/L Potassium 3.8 (3.5-5.1) mmol/L Chloride 97 L (98-107) mmol/L Carbon Dioxide 22 (22-29) mmol/L Anion Gap 18.8 (5-19) BUN 16 (6-20) mg/dL Creatinine 0.7 (0.7-1.2) mg/dL GFR Calculation 120.4 (90-130) mL/min Glucose 207 H (65-115) mg/dL Calculated Osmolal ity 285 (285-295) mOsm/k g Calcium 9.8 (8.5-10.5) mg/dL Total Bilirubin 0.3 (0.15-1.2) mg/dL AST 13 (0-40) U/L ALT 17 (0-41) U/L Alkaline Phosphata se 51 (40-130) IU/L Troponin T Baselin e (0-15) ng/L Troponin T 120 Min [place] (0-15) ng/L Delta Troponin T (0-10) ABS# Total Protein 6.4 L (6.6-8.7) g/dL Albumin 4.8 (3.5-5.2) g/dL Globulin 1.6 (1.3-4.6) g/dL 09/23/20 09/23/20 09/23/20 Range/Units 00:43 00:43 02:20 WBC (4.0-10.0) 10^3/ uL RBC (4.1-5.3) 10^6/u L Hgb (11.7-16.6) g/dL Hct (42.0-52.0) % MCV (80-94) fL MCH (28.0-34.0) pg MCHC (30.0-36.0) g/dL RDW (12.1-15.1) % Plt Count (130-400) 10^3/c mm MPV (7.4-10.4) fL Neut % (Auto) % Lymph % (Auto) % [place] % (Auto) % Eos % (Auto) % Baso % (Auto) % Neut # (Auto) (1.8-7.7) 10^3/u L Lymph # (Auto) (0.8-4.8) 10^3/u L [place] # (Auto) (0.2-0.9) 10^3/u L Eos # (Auto) (0.0-0.8) 10^3/u L Baso # (Auto) (0.0-0.1) 10^3/u L Nucleated RBC % (a uto) % Nucleated RBCs # /100WBC PT (12.1-14.9) SECO NDS INR (0.8-1.2) D-Dimer <= 0.27 (0-0.59) ug/mIFE U Sodium (136-145) mmol/L Potassium (3.5-5.1) mmol/L Chloride (98-107) mmol/L Carbon Dioxide (22-29) mmol/L Anion Gap (5-19) BUN (6-20) mg/dL Creatinine (0.7-1.2) mg/dL GFR Calculation (90-130) mL/min Glucose (65-115) mg/dL Calculated Osmolal ity (285-295) mOsm/k g Calcium (8.5-10.5) mg/dL Total Bilirubin (0.15-1.2) mg/dL AST (0-40) U/L ALT (0-41) U/L Alkaline Phosphata se (40-130) IU/L Troponin T Baselin e 8 (0-15) ng/L Troponin T 120 Min [place] 7.77 (0-15) ng/L Delta Troponin T -0.23 L (0-10) ABS# Total Protein (6.6-8.7) g/dL Albumin (3.5-5.2) g/dL Globulin (1.3-4.6) g/dL Imaging Data^: CXR: Attestation: I personally reviewed and interpreted this imaging study as follows: My impression: no acute abnormality EKG Data^: EKG 1: Attestation: I personally reviewed and interpreted this EKG as follows: EKG interpretation date: 09/23/20 EKG interpretation time: 00:02 Interpretation: nsr hr [address] or t wave abnormalities qrs 88 qtc 449 EKG 2: Attestation: I personally reviewed and interpreted this EKG as follows: EKG interpretation date: 09/23/20 EKG interpretation time: 02:28 Interpretation: nsr hr [address] or t wave abnormalities qrs 111 qtc 411 Discharge Plan Discharge Patient Disposition: Home Clinical Impression: Chest pain Qualifiers: Chest pain type: unspecified Qualified Code(s): R07.9 - Chest pain, unspecified Condition: Stable Prescriptions: No Action atorvastatin 40 mg tablet 40 mg PO DAILY@1900 RF: 0 trazodone 100 mg tablet 100 mg PO DAILY@2100 RF: 0 metformin 1,000 mg tablet 1,000 mg PO BID@0500,1900 RF: 0 lisinopril-hydrochlorothiazide 20-25 mg tablet 1 tab PO DAILY@0500 RF: 0 Lexapro 20 mg tablet 20 mg PO DAILY@1900 RF: 0 isosorbide mononitrate 30 mg tablet extended release 24 hr 30 mg PO DAILY@1900 RF: 0 aspirin 81 mg Tablet,Delayed Release (Dr/Ec) 81 mg PO DAILY Qty: 30 RF: 0 Discharge Orders: Discharge ED (Routine); Ordered 09/23/20 Ordered By: Ana Maria Resendiz Referrals: Lanie Washington MD [Primary Care Provider] - Discharge Diet: Advance as tolerated Discharge Activity: Resume usual activity Patient Instructions: Chest Pain (ED) Stand Alone Forms: Work/School Release Coding Level of Care Code ED Pool Installer for Chg Fwd Exam Comprehensive
[2020-09-23] MEDS: aspirin 81 mg Chew Tablet 324 MG PO (00:53)
[2020-09-23 00:59] LABS: INR 0.93 (0.8-1.2)
[2020-09-23 01:09] LABS: Alanine Aminotransferase 17 U/L (0-41); Albumin Level 4.8 g/dL (3.5-5.2); Alkaline Phosphatase 51 IU/L (40-130); Anion Gap 18.8 (5-19); Aspartate Amino Transferase 13 U/L (0-40); Blood Urea Nitrogen 16 mg/dL (6-20); Calcium 9.8 mg/dL (8.5-10.5); Carbon Dioxide 22 mmol/L (22-29); Chloride 97 mmol/L (98-107); Globulin 1.6 g/dL (1.3-4.6); Glomerular Filtration Rate 120.4 mL/min (90-130); Glucose 207 mg/dL (65-115); Osmolality Calculated 285 mOsm/kg (285-295); Potassium 3.8 mmol/L (3.5-5.1); Sodium 134 mmol/L (136-145); Total Bilirubin 0.3 mg/dL (0.15-1.2); Total Protein 6.4 g/dL (6.6-8.7)
[2020-09-23 01:11] LABS: Troponin(5th) Baseline 8 ng/L (0-15)
[2020-09-23 02:07] VITALS: BP 122/58; PULSE 76; RESP 12; O2SAT 96
--- NOTE | 2020-09-23 02:18 | ECG_ITS ---
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 Measurements Intervals [place] Rate: 69 P: 45 WI: 192 QRS: -20 QRSD: 111 T: 48 QT: 392 QTc: 422 Interpretive Statements SINUS RHYTHM MODERATE INTRAVENTRICULAR CONDUCTION DELAY [110+ ms QRS DURATION] Compared to ECG 07/10/2020 21:52:06 Intraventricular conduction delay now present Electronically Signed On 09-23-2020 19:25:48 CDT by Kimberlee Meehan M.D. [email or web address].[email or web address]/store/NU/[id number] f
[2020-09-23] MEDS: ondansetron 2 mg/ML SDV 2 mL 4 MG IVP (02:37)
[2020-09-23] MEDS: ketorolac 30 mg/mL INJ 15 MG IVP (02:38)
[2020-09-23 02:52] VITALS: BP 113/70; PULSE 81; RESP 17; O2SAT 96
[2020-09-23 02:57] LABS: Troponin 5 2HR 7.77 ng/L (0-15)
[2020-09-23 02:58] LABS: Troponin 5 2HR Delta -0.23 ABS# (0-10)
[2020-09-23 03:32] LABS: D Dimer <= 0.27 ug/mIFEU (0-0.59)
[2020-09-23 04:03] VITALS: BP 122/70; PULSE 81; RESP 12; TEMP 36.7; O2SAT 97
== END 2020-09-23 04:05 | disposition home or self-care (01) ==
PROVIDERS: Internal Medicine; Emergency Provider Emergency Medicine; PCP Internal Medicine
DX: R07.9 Chest pain, unspecified (principal); Z79.82 Long term (current) use of aspirin; E78.5 Hyperlipidemia, unspecified; I10 Essential (primary) hypertension; E11.9 Type 2 diabetes mellitus without complications; Z85.47 Personal history of malignant neoplasm of testis; Z87.891 Personal history of nicotine dependence
CPT/HCPCS: 71045; 80053; 84484; 85025; 85378; 85610; 93005; 96374; 96375; 99284; J1885; J2405

== ENCOUNTER 2022-03-19 07:49 | Outpatient (CLI) | payer BC, SELFPAY ==
[2022-03-19 08:38] LABS: Estmated Average Glucose 186; Hemoglobin A1C 8.1 % (4.0-6.0)
[2022-03-19 08:42] LABS: Alanine Aminotransferase 20 U/L (0-41); Albumin Level 4.5 g/dL (3.5-5.2); Alkaline Phosphatase 54 U/L (40-130); Anion Gap 13.9 (5-19); Aspartate Amino Transferase 12 U/L (0-40); Blood Urea Nitrogen 20 mg/dL (6-20); Calcium 9.5 mg/dL (8.5-10.5); Carbon Dioxide 25 mmol/L (22-29); Chloride 102 mmol/L (98-107); Chol HDL Ratio 3.02 mg/dL (1.0-5.00); Cholesterol 133 mg/dL (0-200); Globulin 2.1 g/dL (1.3-4.6); Glomerular Filtration Rate 89.7 mL/min (90-130); Glucose 151 mg/dL (65-115); HDL Cholesterol 44 mg/dL (60-100); LDL Cholesterol Calculated 72 mg/dL (50-129); LDL HDL Ratio 1.64 RATIO (0.00-3.22); Osmolality Calculated 290 mOsm/kg (285-295); Potassium 3.9 mmol/L (3.5-5.1); Sodium 137 mmol/L (136-145); Total Bilirubin 0.5 mg/dL (0.15-1.2); Total Protein 6.6 g/dL (6.6-8.7); Triglycerides 86 mg/dL (0-150)
== END 2022-03-19 07:50 | disposition home or self-care (01) ==
PROVIDERS: Visit Provider Internal Medicine
DX: E78.5 Hyperlipidemia, unspecified (principal); E87.6 Hypokalemia
CPT/HCPCS: 80053; 80061; 83036

== ENCOUNTER 2022-04-22 12:09 | Emergency (ER) | payer BC, SELFPAY ==
[2022-04-22 12:21] VITALS: BP 123/81; PULSE 88; RESP 16; TEMP 36.7; O2SAT 94; BMI 36.4
--- NOTE | 2022-04-22 13:21 | XR_ITS ---
WS: [id number] EXAMINATION: XR wrist LT min 3V* [id number] REASON FOR EXAM: pain/trauma; get to mid forearm COMPARISON: None ORDER DATE: 04/22/2022 1:23 PM FINDINGS: There is no sign of any acute osseous or articular abnormality. There are no specific soft tissue abn ormalities. XR/XR wrist LT min 3V* [id number] IMPRESSION: No acute osseous or soft tissue abnormality.
--- NOTE | 2022-04-22 13:21 | XR_ITS ---
WS: [id number] EXAMINATION: XR hand LT min 3V* [id number] REASON FOR EXAM: trauma/pain COMPARISON: None available. ORDER DATE: 04/22/2022 1:23 PM FINDINGS: There is no sign of any acute osseous or articular abnormality. There are no specific soft tissue abn ormalities. XR/XR hand LT min 3V* [id number] IMPRESSION: No acute osseous change
--- NOTE | 2022-04-22 13:22 | ED_ITS ---
HPI - Extremity Injury (Upper) General: Chief Complaint: Extremity Injury, Upper Stated Complaint: Left wrist injury Time Seen by Provider: 04/22/22 12:30 Source: patient Mode of arrival: ambulatory Limitations: no limitations History of Present Illness: Patient is a 51-year-old male who presents to ED today with a complaint of left wrist and forearm pain. 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 Patient states he has continued to have pain since. He states pain seems to radiate into his forearm. He has not noticed any swelling. No numbness, tingling, loss of sensation. No color or temperature changes. MD complaint: injury to: left, forearm and wrist Onset (ago): day(s) Other Extremity Injury: Left: wrist and forearm Other injuries: none Place: work (states this is not worker's comp) Relieving factors: none Exacerbating factors: movement of extremity Context: fall Associated symptoms: Reports no associated symptoms; Denies neck pain Review of Systems Card: Denies: chest pain Resp: Denies: dyspnea Musc: Reports: extremity pain and joint pain (L wrist/forearm); Denies: neck pain, back pain, extremity swelling, joint swelling, joint redness or joint warmth Neuro: Denies: numbness in extremities or sensory changes PFSH ED PFSH: Medical History Dyslipidemia Hypertension Hypokalemia Testicular cancer Type 2 diabetes mellitus Surgical History H/O knee surgery H/O shoulder surgery History of appendectomy History of orchiectomy Hx of tonsillectomy Family History Father Cancer Testicular cancer Mother Heart attack Other Diabetes Social History Smoking and tobacco status: never smoked Alcohol intake: never Household members: spouse Housing: House Physical Exam Const: COMMON NORMALS: no acute distress, patient oriented x3, no limitations and alert GENERAL APPEARANCE: cooperative Extremity: COMMON NORMALS: capillary refill normal and no joint enlargement GENERAL: Yes normal exam except as noted LEFT UPPER EXTREMITY: Yes lower arm (lower foreram) Left lower arm: Yes neurovascular exam (normal), Yes wrist Left wrist: Yes ROM (full but painful ROM) and Yes neurovascular exam (normal) and Yes hand & digits (no carpal bone tenderness/scaphoid tenderness) Neuro: COMMON NORMALS: patient oriented x3, moves all extremities, no focal motor deficits and no sensory deficits noted SENSORIUM/ORIENTATION: Yes alert Course Vital Signs: Vital signs: Vital Signs Temperature 98.0 F 04/22/22 12:21 Pulse Rate 85 04/22/22 14:02 Respiratory Rate 14 04/22/22 14:02 Blood Pressure 138/73 04/22/22 14:02 Pulse Oximetry 96 04/22/22 14:02 Oxygen Delivery Me thod 04/22/22 14:02 MDM - Extremity Injury (Upper) Medical Decision Making XRs negative. Will place in velcro wrist splint and have him follow up with PCP in 1-2 weeks for continued pain. Lab Data Radiology Impressions Hand X-Ray 04/22/22 13:21 IMPRESSION: No acute osseous change Wrist X-Ray 04/22/22 13:21 IMPRESSION: No acute osseous or soft tissue abnormality. Discharge Plan Discharge Patient Disposition: Home Clinical Impression: Left wrist sprain Qualifiers: Encounter type: initial encounter Qualified Code(s): S63.502A - Unspecified sprain of left wrist, initial encounter Condition: Stable Prescriptions: No Action Jardiance 25 mg tablet 25 mg PO DAILY Qty: 90 3RF Rx Instructions: Take one tablet by mouth daily. metformin 1,000 mg tablet 1,000 mg PO BID@0500,1900 Qty: 90 3RF Ozempic 0.25 mg or 0.5 mg(2 mg/1.5 mL) pen injector 0.5 mg SUBCUT .weekly Qty: 6 3RF Rx Instructions: Inject 0.5 mg subcut once a week. atorvastatin 40 mg tablet 40 mg PO DAILY@1900 trazodone 100 mg tablet 100 mg PO DAILY@2100 lisinopril-hydrochlorothiazide 20-25 mg tablet 1 tab PO DAILY@0500 Lexapro 20 mg tablet 20 mg PO DAILY@1900 isosorbide mononitrate 30 mg tablet extended release 24 hr 30 mg PO DAILY@1900 aspirin 81 mg Tablet,Delayed Release (Dr/Ec) 81 mg PO DAILY Qty: 30 0RF Discharge Orders: Discharge ED (Routine); Ordered 04/22/22 Ordered By: Consuelo Russell Referrals: Supa Washington MD [Primary Care Provider] - Activity Restrictions/Additional Instructions: Please follow-up with primary care in 1 to 2 weeks for continued pain. Coding Level of Care Code ED [employer] Operator for Kalia Sepulveda
[2022-04-22 14:02] VITALS: BP 138/73; PULSE 85; RESP 14; O2SAT 96
== END 2022-04-22 14:05 | disposition home or self-care (01) ==
PROVIDERS: Emergency Provider Physician Assistant; PCP Pediatrics
DX: S63.502A Unspecified sprain of left wrist, initial encounter (principal); Z79.84 Long term (current) use of oral hypoglycemic drugs; Z79.82 Long term (current) use of aspirin; E78.5 Hyperlipidemia, unspecified; I10 Essential (primary) hypertension; E11.9 Type 2 diabetes mellitus without complications; Z85.47 Personal history of malignant neoplasm of testis; W17.89XA Other fall from one level to another, initial encounter
CPT/HCPCS: 73110; 73130; 99283

== ENCOUNTER 2022-07-09 08:57 | Outpatient (CLI) | payer BC, SELFPAY ==
[2022-07-09 09:42] LABS: Alanine Aminotransferase 20 U/L (0-41); Albumin Level 4.3 g/dL (3.5-5.2); Alkaline Phosphatase 56 U/L (40-130); Aspartate Amino Transferase 12 U/L (0-40); Blood Urea Nitrogen 21 mg/dL (6-20); Calcium 9.2 mg/dL (8.5-10.5); Carbon Dioxide 23 mmol/L (22-29); Chloride 99 mmol/L (98-107); Chol HDL Ratio 3.18 mg/dL (1.0-5.00); Cholesterol 143 mg/dL (0-200); Globulin 2.4 g/dL (1.3-4.6); Glomerular Filtration Rate 89.3 mL/min (90-130); Glucose 299 mg/dL (65-115); HDL Cholesterol 45 mg/dL (60-100); LDL Cholesterol Calculated 81 mg/dL (50-129); Osmolality Calculated 292 mOsm/kg (285-295); Sodium 134 mmol/L (136-145); Total Bilirubin 0.4 mg/dL (0.15-1.2); Total Protein 6.7 g/dL (6.6-8.7); Triglycerides 84 mg/dL (0-150)
[2022-07-09 09:54] LABS: Estmated Average Glucose 186; Hemoglobin A1C 8.1 % (4.0-6.0)
== END 2022-07-09 08:58 | disposition home or self-care (01) ==
PROVIDERS: PCP Internal Medicine; Visit Provider Internal Medicine
DX: E11.9 Type 2 diabetes mellitus without complications (principal)
CPT/HCPCS: 36415; 80053; 80061; 83036

== ENCOUNTER 2022-11-05 08:17 | Outpatient (CLI) | payer BC, SELFPAY ==
[2022-11-05 09:14] LABS: Alanine Aminotransferase 13 U/L (0-41); Alkaline Phosphatase 42 U/L (40-130); Blood Urea Nitrogen 14 mg/dL (6-20); Calcium 8.6 mg/dL (8.5-10.5); Carbon Dioxide 22 mmol/L (22-29); Chloride 106 mmol/L (98-107); Chol HDL Ratio 5.13 mg/dL (1.0-5.00); Cholesterol 231 mg/dL (0-200); Estmated Average Glucose 189; Glomerular Filtration Rate 102.3 mL/min (90-130); Glucose 125 mg/dL (65-115); HDL Cholesterol 45 mg/dL (60-100); Hemoglobin A1C 8.2 % (4.0-6.0); LDL Cholesterol Calculated 167 mg/dL (50-129); LDL HDL Ratio 3.71 RATIO (0.00-3.22); Osmolality Calculated 288 mOsm/kg (285-295); Sodium 138 mmol/L (136-145); Total Bilirubin 0.3 mg/dL (0.15-1.2); Triglycerides 94 mg/dL (0-150)
[2022-11-05 09:16] LABS: Anion Gap 14.4 (5-19); Aspartate Amino Transferase 13 U/L (0-40); Potassium 4.4 mmol/L (3.5-5.1)
== END 2022-11-05 08:18 | disposition home or self-care (01) ==
PROVIDERS: PCP Family Medicine; Visit Provider Internal Medicine
DX: E11.9 Type 2 diabetes mellitus without complications (principal); E78.5 Hyperlipidemia, unspecified
CPT/HCPCS: 36415; 80053; 80061; 83036

== ENCOUNTER 2023-02-11 07:38 | Outpatient (CLI) | payer BC, SELFPAY ==
[2023-02-11 08:52] LABS: Creatinine Urine, Random 125 mg/dL (39-259); Microalbum Creatinine Ratio Ur 8 mg/dL (0-20); Microalbumin Random Urine 1 ug/dL (0-20)
== END 2023-02-11 07:39 | disposition home or self-care (01) ==
PROVIDERS: PCP Family Medicine; Visit Provider Internal Medicine
DX: E11.9 Type 2 diabetes mellitus without complications (principal); E78.5 Hyperlipidemia, unspecified
CPT/HCPCS: 82044

== ENCOUNTER → 2023-07-08 09:42 | Outpatient (BNVA) | payer BC, SELFPAY | PROVIDERS: PCP Family Medicine; Visit Provider Family Medicine | DX: Z51.81 Encounter for therapeutic drug level monitoring (principal); Z13.220 Encounter for screening for lipoid disorders; R35.0 Frequency of micturition; E11.9 Type 2 diabetes mellitus without complications | CPT/HCPCS: 80053; 80061; 83036; 84153; 85025 ==

== ENCOUNTER 2024-02-28 14:28 | Inpatient (IN) | payer BC, SELFPAY ==
[2024-02-28 14:33] VITALS: BP 135/82; PULSE 124; RESP 18; TEMP 36.8; O2SAT 92
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
[2024-02-28] MEDS: OLANZapine 10 mg ODT 20 MG PO (15:39)
[2024-02-28 15:55] LABS: Basophils % 0.4 %; Eosinophils # 0.1 10^3/uL (0.0-0.8); Eosinophils % 1.5 %; Hematocrit 46.6 % (37-53); Lymphocytes # 3.4 10^3/uL (0.8-4.8); Lymphocytes % 45.1 %; Mean Corpuscular HGB Conc 34.3 g/dL (30-55); Mean Corpuscular Volume 90.3 fl (82-101); Monocytes # 0.6 10^3/uL (0.2-0.9); Monocytes % 8.3 %; Neutrophils % 44.3 %; Nucleated Red Blood Cells % 0 %; Platelet Count 232 10^3/cmm (157-399); Red Blood Count 5.16 10^6/uL (3.85-5.65); Red Cell Distribution Width 13.2 % (12.1-15.1); White Blood Count 7.45 10^3/uL (3.29-11.43)
--- NOTE | 2024-02-28 15:58 | PC.NURSE ---
96 hour hold rights read with patient. R.D. present when the involuntary rights were read. Patient stated at first I am not going, I am not doing it . I want to go home. After discussing his 96 hour hold with patient was cooperative at this time. Copy of rights given to patient.
[2024-02-28 16:16] LABS: Alanine Aminotransferase 26 U/L (0-41); Albumin Level 4.7 g/dL (3.5-5.2); Alcohol Level 231 mg/dL (0-10); Alkaline Phosphatase 68 U/L (40-130); Anion Gap 19.4 (5-19); Aspartate Amino Transferase 17 U/L (0-40); Blood Urea Nitrogen 10 mg/dL (6-20); Calcium 8.8 mg/dL (8.5-10.5); Carbon Dioxide 23 mmol/L (22-29); Chloride 100 mmol/L (98-107); Globulin 2.3 g/dL (1.3-4.6); Glomerular Filtration Rate 118.9 mL/min (90-130); Glucose 196 mg/dL (65-115); Osmolality Calculated 292 mOsm/kg (285-295); Potassium 3.4 mmol/L (3.5-5.1); Salicylate 0.5 mg/dL (3-10); Sodium 139 mmol/L (136-145); Total Bilirubin 0.3 mg/dL (0.15-1.2)
[2024-02-28 16:17] LABS: Acetaminophen < 5.0 ug/mL (10-30)
[2024-02-28 17:28] VITALS: BP 124/64; PULSE 105; O2SAT 94
[2024-02-28 17:34] VITALS: BP 124/64; PULSE 105; O2SAT 94
--- NOTE | 2024-02-28 17:46 | PC.NURSE ---
pt arrived to unit via wheelchair accompanied by security. pt denies any needs at this time.
[2024-02-28 19:45] VITALS: BP 131/67; PULSE 109; RESP 16; O2SAT 92
[2024-02-28 19:47] VITALS: BP 131/67; PULSE 109; RESP 16; O2SAT 92
[2024-02-29 06:28] VITALS: BP 115/71; PULSE 90; RESP 18; TEMP 37; O2SAT 98
[2024-02-29 06:32] VITALS: BMI 33.4
[2024-02-29 08:15] VITALS: BP 142/84; PULSE 99; RESP 17; O2SAT 96
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
--- NOTE | 2024-02-29 08:47 | PC.NURSE ---
IN ROOM SITTING ON BED. DENIES PAIN. DENIES SI/HI AND AVH AT THIS TIME. PT IS NOTED TO HAVE MILD ANXIETY DUE TO NOT BEING DISCHARGED. PT ASKS REPEATEDLY TO BE LET OUT TODAY. PT WAS EDUCATED ON THE PROCESS OF ADMISSION AND DISCHARGE AND EXPLAINED THAT SINCE HE JUST GOT HERE THAT HE WOULD SEE THE DR. AND THEN THE CASE WORKERS TO DISCUSS DISCHARGE PLANS LATER TODAY. RATES ANXIETY AND DEPRESSION 0/10. PT STATES GOAL IS TO GET OUT OF HERE TODAY. PT KEEPS SAYING HE NEEDS TO GO TO WORK TOMORROW SEVERAL TIMES THROUGH OUT ASSESSMENT. ALL QUESTIONS ANSWERED AND SUPPORT WAS VOICED.
[2024-02-29] MEDS: multivitamin therapeutic Tablet 1 TAB PO (09:23)
[2024-02-29] MEDS: folic acid 1 mg Tablet PO (09:24)
[2024-02-29] MEDS: carvedilol 6.25 mg Tablet PO ×2 (09:24→18:20)
[2024-02-29] MEDS: hydroCHLOROthiazide 25 mg Tablet PO (09:24)
[2024-02-29] MEDS: lisinopril 20 mg Tablet PO (09:24)
[2024-02-29] MEDS: thiamine 100 mg Tablet PO (09:24)
[2024-02-29] MEDS: metformin 500 mg Tablet 1000 MG PO ×2 (09:25→18:20)
[2024-02-29 11:59] VITALS: BP 123/71; PULSE 80; RESP 16; O2SAT 97
[2024-02-29 15:59] VITALS: BP 129/79; PULSE 93; RESP 17; TEMP 36.6; O2SAT 96
[2024-02-29] MEDS: escitalopram 10 mg Tablet 20 MG PO (18:19)
[2024-02-29] MEDS: atorvastatin 40 mg Tablet PO (18:20)
[2024-02-29 19:00] VITALS: BP 124/75; PULSE 86; RESP 18; O2SAT 96
[2024-02-29] MEDS: trazodone 150 mg Tablet PO (20:35)
[2024-02-29 23:00] VITALS: BP 98/62; PULSE 80; RESP 16; TEMP 36.8; O2SAT 98
[2024-03-01] VITALS (7 sets, daily range): BP systolic 129–152; BP diastolic 80–92; PULSE 74–93; RESP 18–20; TEMP 36.5–37.2; O2SAT 97–98
[2024-03-01 05:33] LABS: Glucose Point of Care 198 mg/dL (70-110)
--- NOTE | 2024-03-01 05:38 | PC.NURSE ---
Blood Sugar Patient's blood glucose elevated in the 190s. Patient states he typically takes a shot for his sugar; tirzepatide subq listed in his home medications. This medication is nonformulary, patient states is bringing in medication for him sometime today.
[2024-03-01] MEDS: metformin 500 mg Tablet 1000 MG PO ×2 (05:45→17:59)
[2024-03-01] MEDS: multivitamin therapeutic Tablet 1 TAB PO (08:56)
[2024-03-01] MEDS: carvedilol 6.25 mg Tablet PO ×2 (08:56→17:59)
[2024-03-01] MEDS: hydroCHLOROthiazide 25 mg Tablet PO (08:56)
[2024-03-01] MEDS: lisinopril 20 mg Tablet PO (08:56)
[2024-03-01] MEDS: folic acid 1 mg Tablet PO (08:56)
[2024-03-01] MEDS: thiamine 100 mg Tablet PO ×2 (08:57→09:01)
[2024-03-01] MEDS: nicotine 2 mg Gum BUCCAL (14:58)
--- NOTE | 2024-03-01 15:11 | PC.NURSE ---
BROUGHT IN MOUJARANO 2.5 ML INJECTION THAT PT TAKES WEEKLY ON TUESDAY BUT MISSED HIS DOSE DUE TO BEING BROUGHT IN HERE. NEW ORDERS RECEIVED TO GIVE HIS WEEKLY INJECTION TODAY FROM DR. SANTIAGO. CIWA PROTOCOL WAS DISCONTINUED DUE TO NOT SCORING AND PT HAS NOT BEEN OBSERVED HAVING ANY WITHDRAWAL SYMPTOMS TO THIS POINT. PT EDUCATED ON NEW ORDERS AND SUPPORT WAS VOICED.
--- NOTE | 2024-03-01 15:22 | P.NPUPN_ITS ---
Subjective NPU 2 Subjective: Patient presented today continuing to deny any issues. We discussed the fact that his DWI will likely cause him to lose his job and continues to report that he will figure it out. Collateral information from the is supportive of his position. She did work with a family member to make sure the guns were out of the home. We discussed making sure there was a appropriate follow-up offered although he reports he gets his stressed out by fishing and hunting and was not willing to identify how he is drinking is probably in an inappropriate vehicle to manage distress. We agreed we would meet again in the morning and consider discharge. Mental Status Exam 2 MSE Comments: This is an obese white male in hospital scrubs looking older than his stated age with limited grooming and eye contact. Notable body odor from limited hygiene. No abnormal movements except for psychomotor retardation. Cooperative with exam in mild to moderate distress. Speech was slightly decreased rate and normal volume. Mood described as I just made a mistake, affect congruent and slightly subdued. Thought process appeared linear and organized. Thought content: Patient denied suicidal or homicidal ideation, there were no delusions reported or noted, he denied auditory or visual hallucinations. The patient identifies himself as depressed but denies any suicidal ideation or thoughts of violence. He denies any symptoms of anxiety, paranoia, or hallucinations. He reports having nightmares about traumatic events from his past. He denies any family history of mental health issues, addiction, or suicide attempts. Attention and concentration were intact and memory was mostly reliable but some elements of his story are likely intentionally omitted, but none were formally tested. He is alert and oriented x 3. Insight and judgment are limited and impulse control is impaired. Vitals/I&O/Wt Last Vital Signs Temp 98 F 03/01/24 11:00 Pulse 88 03/01/24 11:00 Resp 18 03/01/24 11:00 BP 152/87 03/01/24 11:00 Pulse Ox 98 03/01/24 11:00 O2 Del Method Room Air 02/29/24 19:00 Weight last 48 hrs Weight 122.64 kg Weight 118.104 kg Data NPU 02/28/24 15:37 02/28/24 15:37 A&P Assessment and plan (1) Suicidal ideation: (2) Alcohol intoxication: (3) Alcohol withdrawal: (4) Adjustment disorder with mixed disturbance of emotions and conduct: (5) Depression: (6) Hypertension: (7) Dyslipidemia: (8) Type 2 diabetes mellitus: Plan This is a 34-year-old male who denies significant history of mental health or addiction issues. He has history of addiction with DWI given to him yesterday and reporting that he does not recall why he attracted the attention of the police after he left the senior care. The patient presents with a history of depression but denies any current suicidal ideation or thoughts of violence. He has a history of alcohol use disorder and a recent driving while intoxicated (DWI) incident. He denies any use of illicit drugs. He has a stable occupational and familial environment. He has a history of one psychiatric hospitalization and has participated in outpatient psychiatric services on multiple occasions. 1. Continue off of medications. 2. Continue every 15 minute checks for safety. 3. Encourage individual group and milieu therapy. 4. Encourage sober living treatment after discharge at the highest level of care to which he is willing to commit. 5. Obtain collateral information. May consider discharge tomorrow. We will ensure that guns were removed from the home prior to discharge. 6. Evaluate for safety against the backdrop of the 96-hour hold. Involuntary Hold Information 2 96 Hour Hold: 96 Hour Involuntary Admission: No Attestations NPU 2 Medical Necessity Statement*: Inpatient hospitalization is medically necessary and the clinically appropriate intervention at this time. We will monitor medication to make changes as indicated. His likely length of stay 1-3 days. Coding Level of Care Code Acute Code for [facility] Fwd Diagnoses Suicidal ideation R45.851 Alcohol intoxication F10.929 Alcohol withdrawal F10.939 Adjustment disorder with mixed disturbance of emotions and conduct F43.25 Depression F32.A Hypertension I10 Dyslipidemia E78.5 Type 2 diabetes mellitus E11.9
[2024-03-01] MEDS: TIRZEPATIDE 2.5 MG/0.5 ML 2.5 EACH SUBCUT (16:15)
[2024-03-01] MEDS: escitalopram 10 mg Tablet 20 MG PO (17:59)
[2024-03-01] MEDS: atorvastatin 40 mg Tablet PO (17:59)
[2024-03-01] MEDS: trazodone 150 mg Tablet PO (20:47)
[2024-03-02] MEDS: metformin 500 mg Tablet 1000 MG PO (05:57)
[2024-03-02 06:36] VITALS: BP 130/74; PULSE 72; RESP 16; TEMP 36.4; O2SAT 98
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
[2024-03-02] MEDS: lisinopril 20 mg Tablet PO (07:54)
[2024-03-02] MEDS: thiamine 100 mg Tablet PO (07:54)
[2024-03-02] MEDS: hydroCHLOROthiazide 25 mg Tablet PO (07:54)
[2024-03-02] MEDS: folic acid 1 mg Tablet PO (07:54)
[2024-03-02] MEDS: carvedilol 6.25 mg Tablet PO (07:54)
[2024-03-02] MEDS: multivitamin therapeutic Tablet 1 TAB PO (07:55)
[2024-03-02 08:36] VITALS: BP 130/74; PULSE 72; RESP 16; TEMP 36.4; O2SAT 98
== END 2024-03-02 08:53 | disposition home or self-care (01) | DRG 882 ==
LOC: ER 16:15 → NP 16:20
PROVIDERS: Admitting Provider Psychiatry & Neurology Psychiatry; Emergency Provider Family Medicine; PCP Family Medicine; Visit Provider Psychiatry & Neurology Psychiatry
DX: F43.25 Adjustment disorder with mixed disturbance of emotions and conduct (principal); F10.239 Alcohol dependence with withdrawal, unspecified; R45.851 Suicidal ideations; F10.229 Alcohol dependence with intoxication, unspecified; Y90.7 Blood alcohol level of 200-239 mg/100 ml; F32.A Depression, unspecified; I10 Essential (primary) hypertension; E78.5 Hyperlipidemia, unspecified; E11.9 Type 2 diabetes mellitus without complications; E66.9 Obesity, unspecified; F17.220 Nicotine dependence, chewing tobacco, uncomplicated; Z79.84 Long term (current) use of oral hypoglycemic drugs; Z79.85 Long-term (current) use of injectable non-insulin antidiabetic drugs; Z68.34 Body mass index [BMI] 34.0-34.9, adult
CPT/HCPCS: 36415; 36416; 80053; 80307; 82962; 85025; 96372; 97150; 97165; 99285